=== PATIENT | male | born 1945 | race Caucasian/White ===

== ENCOUNTER 2016-11-28 07:37 | Day surgery (SDC) | payer MEDICARE ==
--- NOTE | ~2016-11-28 | EGD ---
EGD REPORT [facility] [address] [address] NAME: ESTEBAN MORALES SR : [birth year] STATUS : REG [facility]#: [id number] AGE: 71 ADM/REG DATE : 11/28/16 MR#: [id number] REPORT SERV DATE: 11/28/16 DICTATED BY: RANDY STORY DATE: 11/28/16 REPORT STATUS : Draft [facility]: [facility] DATE: 11/28/16 Endoscopy Center Patient Name: Esteban Morales Date of : 1945 Attending MD: RANDY STORY MD Procedure Date No Time: 11/28/2016 Procedure: Colonoscopy Indications: High risk colon cancer surveillance: Personal history of colonic polyps, Last colonoscopy: June 2011 Referring MD: LAWRENCE BENITEZ Medicines: See the Anesthesia note for documentation of the administered medications Complications: No immediate complications. Procedure: Pre-Anesthesia Assessment: - ASA Grade Assessment: IV - A patient with severe systemic disease that is a constant threat to life. After I obtained informed consent, the scope was passed under direct vision. Throughout the procedure, the patient's blood pressure, pulse, and oxygen saturations were monitored continuously. The PCF [id number] was introduced through the anus and advanced to the terminal ileum, with identification of the appendiceal orifice and IC valve. The colonoscopy was performed without difficulty. The patient tolerated the procedure well. The quality of the bowel preparation was adequate. Findings: The perianal and digital rectal examinations were normal. Internal hemorrhoids were found during retroflexion and were small. Impression: - Internal hemorrhoids. Recommendation: - Patient has a contact number available for emergencies. The signs and symptoms of potential delayed complications were discussed with the patient. Return to normal activities tomorrow. Written discharge instructions were provided to the patient. - Regular diet. - Continue present medications. - Repeat colonoscopy in 5 years for surveillance. Procedure Code(s): --- Professional --- 32530, Colonoscopy, flexible, proximal to splenic flexure; diagnostic, with or without collection of specimen(s) by brushing or washing, with or without EGD REPORT [facility] [address] [place], [place] [address] [facility] [address] NAME: ESTEBAN MORALES : [birth year] STATUS : REG [facility] PAT#: [id number] AGE: 71 ADM/REG DATE : 11/28/16 MR#: [id number] REPORT SERV DATE: 11/28/16 DICTATED BY: RANDY STORY DATE: 11/28/16 REPORT STATUS : Draft TRANSCRIBED BY: Memopal DATE: 11/28/16 colon decompression (separate procedure) Diagnosis Code(s): --- Professional --- K64.8, Other hemorrhoids Z86.010, Personal history of colonic polyps CPT copyright 2013 [employer]. All rights reserved. The codes documented in this report are preliminary and upon painter tumbling barrel review may be revised to meet current compliance requirements. Randy Story MD RANDY STORY MD 11/28/2016 9:34 AM This report has been signed electronically. Number of Addenda: 0 Note Initiated On: 11/28/2016 8:44 AM Scope Withdrawal Time 0 hours 10 minutes 1 second [address] [facility] [place] [address]
[~2016-11-28 07:37] MED LIST: AMIT50 PO; ASAB PO; GLUCOPHAGE1000 MG PO; HALF81 PO; LIPITOR20 PO; LOP25 PO; MIRALAXPKT PO; NTG150 SL; P1 PO; PLAVIX PO; REQUIP1 PO; TRILIPIX135 MG PO; ULTRAM50 PO; XANAX1 MG PO; ZANTAC 150 PO; ZANTAC 75 PO; ZOL100 PO
== END 2016-11-28 23:59 | disposition home health service (06) ==
LOC: DMU 07:37
PROVIDERS: Internal Medicine Gastroenterology
PROC: 0DJD8ZZ Inspection of Lower Intestinal Tract, Via Natural or Artificial Opening Endoscopic (ICD-10-PCS; principal; 2016-11-28 09:30)
DX: Z12.11 Encounter for screening for malignant neoplasm of colon (principal); K64.8 Other hemorrhoids; I10 Essential (primary) hypertension; E11.9 Type 2 diabetes mellitus without complications; G47.33 Obstructive sleep apnea (adult) (pediatric); I25.10 Atherosclerotic heart disease of native coronary artery without angina pectoris; E78.00 Pure hypercholesterolemia, unspecified; K21.9 Gastro-esophageal reflux disease without esophagitis; M19.90 Unspecified osteoarthritis, unspecified site; F41.9 Anxiety disorder, unspecified; M35.3 Polymyalgia rheumatica; Z86.010 Personal history of colon polyps; Z79.82 Long term (current) use of aspirin; Z79.899 Other long term (current) drug therapy
CPT/HCPCS: 82962